=== PATIENT | male | born 1965 | race Caucasian/White ===

== ENCOUNTER 2023-07-05 11:59 | Emergency (ER) | payer OTHER, SELFPAY ==
--- NOTE | ~2023-07-05 | XR_ITS ---
EXAMINATION: XR WRIST, LEFT CLINICAL INFORMATION: Post reduction COMPARISON: Left hand and forearm radiograph from TECHNIQUE: PA, lateral, and oblique views of the left wrist. FINDINGS: Overlying cast obscures fine osseous and soft tissue detail. Redemonstration of distal radius fracture with persistent apex volar angulation and impaction. Ulnar styloid fracture is redemonstrated. Joint spaces and alignment are otherwise maintained. Soft tissue swelling along the fracture site. XR/XR wrist LT min 3V IMPRESSION: 1. Overlying cast obscures fine osseous and soft tissue detail. 2. Redemonstration of distal radius fracture with persistent apex volar angulation and impaction. 3. Ulnar styloid fracture is redemonstrated. 4. Soft tissue swelling along the fracture site.
--- NOTE | ~2023-07-05 | XR_ITS ---
EXAMINATION: XR LEFT FOREARM AND LEFT HAND AND WRIST. CLINICAL INFORMATION: Fall tender to touch left distal radius. COMPARISON: None available. TECHNIQUE: AP and lateral views of the left forearm were obtained. 4 views left wrist hand. FINDINGS: Left wrist/hand: There is a impacted fracture distal radius and a minimally displaced ulnar styloid process fracture with dinner fork deformity and dorsal soft tissue swelling. No additional fracture seen. Left forearm: Again visualized is distal radial and ulnar side process fracture. There is no fracture involving the proximal mid forearm. Mild dorsal wrist soft tissue swelling is seen. XR/XR hand wrist LT IMPRESSION: Colles fracture distal radius with mild dorsal angulation distal fragment and moderate dorsal wrist soft tissue swelling. Also visualized are minimally displaced ulnar styloid process fracture. Rest of the left forearm is unremarkable.
--- NOTE | ~2023-07-05 | XR_ITS ---
EXAMINATION: XR LEFT FOREARM AND LEFT HAND AND WRIST. CLINICAL INFORMATION: Fall tender to touch left distal radius. COMPARISON: None available. TECHNIQUE: AP and lateral views of the left forearm were obtained. 4 views left wrist hand. FINDINGS: Left wrist/hand: There is a impacted fracture distal radius and a minimally displaced ulnar styloid process fracture with dinner fork deformity and dorsal soft tissue swelling. No additional fracture seen. Left forearm: Again visualized is distal radial and ulnar side process fracture. There is no fracture involving the proximal mid forearm. Mild dorsal wrist soft tissue swelling is seen. XR/XR forearm LT 2V IMPRESSION: Colles fracture distal radius with mild dorsal angulation distal fragment and moderate dorsal wrist soft tissue swelling. Also visualized are minimally displaced ulnar styloid process fracture. Rest of the left forearm is unremarkable.
[2023-07-05 12:21] VITALS: BP 150/75; PULSE 86; RESP 18; TEMP 36.3; O2SAT 96; BMI 21.0
--- NOTE | 2023-07-05 12:21 | ED.EXTPRO ---
HPI - Extremity Problem General Chief complaint: Extremity Injury, Upper Stated complaint: L wrist injury Time Seen by Provider: 07/05/23 13:44 Source: patient Mode of arrival: ambulatory Limitations: no limitations History of Present Illness HPI Narrative: Patient is a 57 year old assigned male at with a history of tobacco use presenting to the emergency department today with left wrist pain. Patient states that 3 days ago he tripped and fell, landing on an outstretched left wrist. Patient denies any head strike or loss of consciousness. Patient denies any dizziness, lightheadedness, abdominal pain, nausea, vomiting, fever, chills, blurry vision, double vision, loss of vision, chest pain, difficulty breathing, shortness of breath, back pain, night sweats, pain with urination, increased urinary frequency, increased urinary urgency, blood in his urine or stool, syncope or a near syncopal episode, bowel incontinence, bladder incontinence, bowel retention, bladder retention, or any other complaints at this time. MD Complaint: extremity pain Onset (ago): day(s) (3) Pain Consistency: constant Location: left and upper extremity Severity scale (1-10): 4 Quality: aching and dull Radiation: none Relieving factors: nothing Exacerbating factors: range of motion and palpation Associated symptoms: denies other symptoms Related Data Allergies Allergy/AdvReac Type Severity Reaction Status Date / Time No Known Allergies Allergy Verified 07/05/23 12:21 Review of Systems Constitutional: Constitutional: Reports no additional constitutional complaints, Denies chills, Denies fever(s) and Denies night sweats Eyes: Eyes: Reports no additional eye complaints, Denies blurry vision, Denies change in vision, Denies diplopia, Denies eye discharge, Denies loss of vision and Denies eye pain ENT: Denies dizziness Cardiovascular: Cardiovascular: Reports no additional cardiovascular complaints, Denies chest pain, Denies lightheadedness, Denies Loss of Consciousness and Denies dyspnea Respiratory: Respiratory: Reports no additional respiratory complaints and Denies dyspnea Gastrointestinal: Gastrointestinal: Reports no additional gastrointestinal complaints, Denies abdominal pain, Denies melena, Denies hematochezia, Denies change in bowel habits and Denies change in stool character Genitourinary: Genitourinary: Reports no additional male genitourinary complaints, Denies hematuria, Denies oliguria, Denies difficulty urinating, Denies dysuria, Denies urinary frequency, Denies urinary hesitancy, Denies urinary incontinence and Denies urinary urgency Musculoskeletal: Musculoskeletal: Reports no additional musculoskeletal complaints, Denies numbness and Denies tingling Comments: left wrist pain Neurologic: Denies dizziness, Denies loss of vision, Denies numbness and Denies tingling Psychiatric: Psychiatric: Reports no additional psychiatric complaints Endocrine: Endocrine: Reports no additional endocrine complaints Hematologic/Lymphatic: Hematologic/Lymphatic: Reports no additional hematologic/lymphatic complaints Allergic/Immunologic: Allergic/Immunologic: Reports no additional allergic/immunologic complaints PMFSH Past Medical History Attestation statement: The following information was validated with the patient. Source: old records reviewed and nursing notes reviewed Onset Date is defined in the Problem List Problems that require an onset date and time if occurred within 24 hrs of arrival to the ED Aortic Dissection and Rupture; Neurologic impairment; Cardiopulmonary Arrest; Endotracheal Intubation; Insertion or Replacement of Mechanical Circulatory Assist Device Social History Social History Advance Directives: No Advance Directives Information Provided: No Physical Exam Vital Signs: Vital Signs: Last Vital Signs Temp 97.3 F 07/05/23 12:21 Pulse 86 07/05/23 12:21 Resp 18 07/05/23 12:21 BP 150/75 H 07/05/23 12:21 Pulse Ox 96 07/05/23 12:21 O2 Del Method Room Air 07/05/23 12:21 BMI result Body Mass Index 21.0 Const: General: cooperative, no acute distress, alert and awake Nutritional Appearance: well nourished Orientation/consciousness: patient oriented x3 Limitations: no limitations HEENT: Head: Yes normal to inspection and Yes atraumatic Ears: hearing grossly normal bilaterally and external ears normal General nose exam: Normal external nose present, no nasal discharge noted and no epistaxis Face and sinus: Yes normal facial exam, No abrasion and No laceration Mouth: Normal oral and palatal mucosa present, no drooling and no muffled voice Eyes: General: appearance normal, both eyes and all related structures Periorbital: periorbital findings normal Eyelids: Yes eyelids normal Conjunctivae: conjunctivae normal Pupils: Equal, round and reactive pupils present EOM: EOMs intact bilaterally Neck: Neck: Yes normal visual inspection, Yes full ROM and Yes no lymphadenopathy Chest: Chest palpation & inspection: normal inspection of the chest Resp: Effort & Inspection: normal respiratory effort and able to speak in complete sentences GI: Inspection: Yes normal to inspection Neuro: General: patient oriented x3 and moves all extremities Cranial nerves: Yes Equal, round and reactive pupils present Cognition (Neuro): normal cognition Motor exam (neuro): 5/5 motor strength present throughout Sensory Exam: Normal double simultaneous stimulation for sensation Coordination: [id number]-[id number] test normal Extrem: Other: minimal left wrist swelling, pain with palpation of the left wrist, pain with ROM of the left wrist General: Yes capillary refill normal Psych: Appearance: grossly normal Mental Status: mental status grossly normal Affect: normal affect Attitude: cooperative Thought process: Normal thought process present Thought content: Normal thought content present Insight: Good insight present (Psych) Course Course Course Narrative: RME:?57 yo male here w/ left wrist pain x2 days. States he was walking backward with his hand behind his back when his fingers became caught in a chain linked fence. reports falling and pulling his left hand out of the fence. +immediate left wrist pain. now radiating up his left forearm. no otc meds at home. +ttp over left distall radius. 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 2+radial pulses paln for xr Full HPI, ROS and PE to be performed by the primary ED provider. Medications Administered Discontinued Medications Generic Name Dose Route Start Last Admin Trade Name Freq PRN Reason Stop Dose Admin Bupivacaine HCl 5 ml 07/05/23 13:46 07/05/23 14:20 Bupivacaine 0.5 % 50 Ml Vial INFILTRATI 07/05/23 13:47 5 ml ONCE ONE Administration Lidocaine HCl 5 ml 07/05/23 13:46 07/05/23 14:20 Lidocaine Hcl 1 % Mpf 5 Ml Vial SUBCUT 07/05/23 13:47 5 ml ONCE ONE Administration Medical Decision Making Medical Decision Making MDM Narrative: Patient is a 57 year old assigned male at with a history of tobacco use presenting to the emergency department today with left wrist pain. Patient's physical exam was as noted in the physical exam portion of this note. Patient's left wrist x-ray showed a colles fracture distal radius with an ulnar styloid fracture. I explained my physical exam findings as well as all test results to the patient. I answered all questions asked by the patient. I performed a hematoma block of the left wrist and reduced the left wrist slightly. Patient's repeat left wrist x-ray showed improved alignment. Patient's PMS was intact prior to and after reduction. Patient's left wrist was placed in a sugar tong splint, without incident. Patient's PMS was intact prior to and after splint placement. I stressed the importance of the patient taking his medication as prescribed. I stressed the importance of the patient following up with his primary care provider and an orthopedic provider. I stressed the importance of the patient returning to the emergency department immediately if his symptoms were to worsen or if he were to develop any dizziness, shortness of breath, difficulty breathing, chest pain, blurry vision, loss of vision, nausea, vomiting, abdominal pain, fever, chills, back pain, or any other complaints. Patient verbalized agreement and understanding with this treatment plan and discharge. Differential Diagnosis Differential Diagnoses: The differential diagnosis associated with the presentation includes Wrist fracture Ulnar fracture Radius fracture Admission/Observation Consideration of admission/observation: Escalation of care including admission/observation considered Patient would have been admitted to the hospital had his work up had any findings where hospital admission was appropriate and his clinical presentation warranted hospital admission. Independent Interpretation I performed an independent interpretation of an: Plain X-Ray Interpretation: My interpretation is in agreement with the radiologist's impression of these imaging studies. EXAMINATION: XR LEFT FOREARM AND LEFT HAND AND WRIST. CLINICAL INFORMATION: Fall tender to touch left distal radius. COMPARISON: None available. TECHNIQUE: AP and lateral views of the left forearm were obtained. 4 views left wrist hand. FINDINGS: Left wrist/hand: There is a impacted fracture distal radius and a minimally displaced ulnar styloid process fracture with dinner fork deformity and dorsal soft tissue swelling. No additional fracture seen. Left forearm: Again visualized is distal radial and ulnar side process fracture. There is no fracture involving the proximal mid forearm. Mild dorsal wrist soft tissue swelling is seen. XR/XR hand wrist LT IMPRESSION: Colles fracture distal radius with mild dorsal angulation distal fragment and moderate dorsal wrist soft tissue swelling. Also visualized are minimally displaced ulnar styloid process fracture. Rest of the left forearm is unremarkable. Dictated By: Jose Francisco Lopez MD Signed By: Electronically signed by Jose Francicso Lopez MD 07/05/23 1416 EXAMINATION: XR WRIST, LEFT CLINICAL INFORMATION: Post reduction COMPARISON: Left hand and forearm radiograph from TECHNIQUE: PA, lateral, and oblique views of the left wrist. FINDINGS: Overlying cast obscures fine osseous and soft tissue detail. Redemonstration of distal radius fracture with persistent apex volar angulation and impaction. Ulnar styloid fracture is redemonstrated. Joint spaces and alignment are otherwise maintained. Soft tissue swelling along the fracture site. XR/XR wrist LT min 3V IMPRESSION: 1. Overlying cast obscures fine osseous and soft tissue detail. 2. Redemonstration of distal radius fracture with persistent apex volar angulation and impaction. 3. Ulnar styloid fracture is redemonstrated. 4. Soft tissue swelling along the fracture site. Dictated By: Jovany Dobbins MD Signed By: Electronically signed by Jovany Dobbins MD 07/05/23 1518 Radiology Impression Discussion of test interpretation with radiology: I have reviewed the radiologist's reading. Procedures Orthopedic Fracture Reduction Fracture #1: Time Out Performed: Yes Side: left Fracture Reduction Location: radius and ulna Analgesia: hematoma block Technique: direct manipulation and traction/counter-traction Post Reduction X-rays Demonstrate: anatomical reduction Post-reduction neuro exam: intact Post-reduction vascular exam: intact Splint Applied: Yes Patient Tolerated Procedure: well Orthopedic Splinting/Casting Injury #1: Side: left Upper Extremity Injury Location: wrist Upper Extremity Immobilizer: sling/shoulder immobilizer and sugar tong splint Critical Care Time Critical Care Time Critical Care Time: Yes Total Critical Care Time: 45 Attestation: I spent 45 minutes of Critical Care Time with this patient. This does not include time spent on separately reported billable procedures. Discharge Plan Discharge Clinical Impression: Fx wrist Patient Disposition: Home, Self-Care Instructions: Wrist Fracture in Adults (ED) Additional Instructions: Do NOT get your splint wet. If you have any numbness and tingling in your fingers, you may loosen the OANH Wrap around your splint. If you find yourself loosening so much you're taking it off, come back to the ER for a new splint. Follow up with your primary care provider and an orthopedic provider. Return to the emergency department immediately if your symptoms worsen or if you develop any dizziness, shortness of breath, difficulty breathing, chest pain, blurry vision, loss of vision, nausea, vomiting, abdominal pain, fever, chills, back pain, or any other complaints. [place] [facility] [place]] (Call to establish and follow up with a primary care provider. If you already have a primary care provider, please follow up with them.) [facility] [place] [facility] [place] (Call to establish and follow up with a primary care provider. If you already have a primary care provider, please follow up with them.) [facility] [place] [place]Provider Group] (Call to establish and follow up with a primary care provider. If you already have a primary care provider, please follow up with them.) [facility] [place] [facility] [place]] (Call to establish and follow up with an orthopedic provider.) Interventions: ED Discharge Assessment Last Done: 07/05/23 15:12 Discharge Date/Time: 07/05/23 15:13 Print Language: Danish
[2023-07-05] MEDS: Lidocaine HCl 1 % MPF 5 ML VIAL SUBCUT (14:20)
== END 2023-07-05 15:13 | disposition home or self-care (01) ==
PROVIDERS: Emergency Provider Emergency Medicine
DX: S62.102A Fracture of unspecified carpal bone, left wrist, initial encounter for closed fracture (principal); M25.532 Pain in left wrist; W01.0XXA Fall on same level from slipping, tripping and stumbling without subsequent striking against object, initial encounter; Y93.9 Activity, unspecified; Y92.89 Other specified places as the place of occurrence of the external cause; Y99.9 Unspecified external cause status
CPT/HCPCS: 25650; 29125; 73090; 73110; 73130; 99282; 99284; J0665

== ENCOUNTER 2023-07-14 13:39 | Outpatient (REF) | payer OTHER, SELFPAY | END 2023-07-14 13:40 | disposition home or self-care (01) | LOC: HO.HOSX 13:39 | PROVIDERS: Visit Provider Physician Assistant | DX: Z13.89 Encounter for screening for other disorder (principal) ==

== ENCOUNTER 2023-07-26 09:06 | Outpatient (REF) | payer OTHER, SELFPAY ==
--- NOTE | ~2023-07-26 | XR_ITS ---
EXAMINATION: XR WRIST, LEFT CLINICAL INFORMATION: Left wrist pain COMPARISON: Left wrist x-ray on 07/05/2023 TECHNIQUE: PA, lateral, and oblique views of the left wrist. FINDINGS: BONES: Mildly impacted fracture distal left radial metaphysis with moderate dorsal displacement and angulation is again visualized. Sclerotic bone formation is seen at the fracture site. Transverse nondisplaced fracture tip of left ulna styloid process is also seen. JOINTS: Alignment of joints is normal. SOFT TISSUE: Soft tissue is normal. No radiopaque foreign body or abnormal air collection is seen. XR/XR wrist LT min 3V IMPRESSION: 1. Unchanged impacted fracture distal left radial metaphysis with moderate dorsal displacement and angulation. Interval appearance of sclerotic bone formation at the fracture site without union. 2. Unchanged Transverse nondisplaced fracture tip of left ulna styloid process. 3. Interval removal of Scotch cast.
== END 2023-07-26 09:07 | disposition home or self-care (01) ==
LOC: HO.HOSX 09:06
PROVIDERS: Visit Provider Physician Assistant
DX: S52.502A Unspecified fracture of the lower end of left radius, initial encounter for closed fracture (principal); W01.0XXA Fall on same level from slipping, tripping and stumbling without subsequent striking against object, initial encounter; Y93.9 Activity, unspecified; Y92.9 Unspecified place or not applicable; Y99.9 Unspecified external cause status; Z79.899 Other long term (current) drug therapy
CPT/HCPCS: 25600; 73110; 99202

== ENCOUNTER 2023-07-26 11:03 | Outpatient (AMB) | payer OTHER, SELFPAY ==
--- NOTE | 2023-07-26 11:09 | A.OFFVIS_ITS ---
Intake Vital Signs 07/26/23 11:27 Height 6 ft Weight 155 lb BMI 21.0 Intake Visit Reasons: FC-distal radius fx, left Intake Note: Hayden Frank a 57 year old male presents today for an evaluation of left distal radius fx. Patient reports a few days prior to [facility] [place] ER visit he had a trip and fall, landing on an outstretched arm. Xrays were taken at ED and was placed in a splint. Currently his pain has been tolerable and is located at the radial aspect of wrist. He has discomfort with removing splint today for xrays. Denies numbness and tingling. Allergies No Known Allergies Allergy (Verified 07/26/23 11:23) Medication List - Last Reconciled 07/26/23 by Marc Hudson PA-C atorvastatin 40 mg PO DAILY metoprolol tartrate 25 mg PO BID HPI FC-distal radius fx, left HPI Details 57-year-old right hand dominant male who presents to the office today for evaluation of left wrist injury the first week of Jun 2023, landing on an outstretched arm. He states his hand got stuck in a fence and he kept moving but the arm was entagled in the fence. He was seen at ED a few days later where x- rays were performed and he was placed in a splint. He currently states he has pain at the radial aspect of his wrist which has been tolerable. He denies any numbness or tingling. He also c/o discomfort with removing of splint today for x-rays. 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 Mild tenderness over the distal radius. No pain along the forearm or elbow. He has full ROM of the elbow. He can supinate and pronate without discomfort. NVI. Office Procedures Casting/Splints 90024-Kgby/Wrist Cast Application Procedure code (CPT) selection complete Fracture Care Fracture Billing Code: Fracture Billing Code Results Reviewed Results Reviewed: X-rays of the left wrist obtained in the office today is significant for a distal radius fracture with impaction and dorsal angulation with evidence of interval healing. Assessment & Plan Assessment & Plan (1) Distal radius fracture, left: Code(s): S52.502A - Unspecified fracture of the lower end of left radius, initial encounter for closed fracture Plan The patient was placed in a short arm cast for the next 3 weeks. Given that the fracture is 4 weeks out and this is his non dominant hand, we discussed non- surgical treatments such as immobilization for 3 weeks, followed by a Velcro wrist splint. He is a smoker and I did explain him the effects of smoking on bone healing for which he does express understanding. I also explained if he decides to have his fracture operated, it would include osteotomy followed by an ORIF which he is not interested in. I would like to see him back in 3 weeks with cast off and new x-rays, sooner if needed. Orders: Orders XR wrist LT min 3V Today M25.532 - Pain in left wrist Patient Instructions: Scribed for Marc Hudson PA-C, by [facility] medical office asst, on 07/26/2023 at 11:15 AM EST. IMarc PA-C, have personally reviewed and agree with the information entered by the scribe. Coding Level of Care Code New Pt Level 3 (62147) Diagnoses Distal radius fracture, left S52.502A CPT Codes Casting - CPT: 54525-Hmow/Wrist Cast Application ([id number]) Fracture Care - Fracture Billing Code: Fracture Billing Code ([id number])
[2023-07-26 11:27] VITALS: BMI 21.0
== END 2023-07-26 12:09 | disposition home or self-care (01) ==
PROVIDERS: Visit Provider Physician Assistant
DX: S52.502A Unspecified fracture of the lower end of left radius, initial encounter for closed fracture (principal); W01.0XXA Fall on same level from slipping, tripping and stumbling without subsequent striking against object, initial encounter
CPT/HCPCS: 25600; 99203

== ENCOUNTER 2023-08-19 11:45 | Outpatient (REF) | payer OTHER, SELFPAY | END 2023-08-19 11:46 | disposition home or self-care (01) | LOC: HO.HOSX 11:45 | PROVIDERS: Visit Provider Physician Assistant | DX: Z13.89 Encounter for screening for other disorder (principal) ==

== ENCOUNTER 2023-09-02 09:17 | Outpatient (REF) | payer OTHER, SELFPAY ==
--- NOTE | ~2023-09-02 | XR_ITS ---
EXAMINATION: XR WRIST, LEFT CLINICAL INFORMATION: Pain in left wrist, fracture. COMPARISON: 07/27/2023 left wrist radiograph and prior. TECHNIQUE: PA, lateral, and oblique views of the left wrist. FINDINGS: Redemonstration of mildly impacted distal left radial metaphyseal fracture. Redemonstration of moderate dorsal displacement and angulation. Bony sclerosis along the fracture line has increased, although fracture line is still visible. Redemonstration of mildly displaced transverse fracture of the tip of the ulnar styloid process. Moderate degenerative changes in the first carpometacarpal joint with joint space narrowing and hypertrophic change. XR/XR wrist LT min 3V IMPRESSION: 1. Redemonstration of mildly impacted distal left radial metaphyseal fracture. Redemonstration of moderate dorsal displacement and angulation. Bony sclerosis along the fracture line has increased, although fractures line is still visible. 2. Redemonstration of mildly displaced transverse fracture of the tip of the ulnar styloid process.
== END 2023-09-02 09:18 | disposition home or self-care (01) ==
LOC: HO.HOSX 09:17
PROVIDERS: Visit Provider Physician Assistant
DX: S52.502D Unspecified fracture of the lower end of left radius, subsequent encounter for closed fracture with routine healing (principal)
CPT/HCPCS: 73110; 99212

== ENCOUNTER 2023-09-02 13:15 | Outpatient (AMB) | payer OTHER, SELFPAY ==
--- NOTE | 2023-09-02 13:40 | A.OFFVIS_ITS ---
Intake Vital Signs 09/02/23 14:40 Height 6 ft Weight 155 lb BMI 21.0 Intake Visit Reasons: OV-left wrist FX-Velcro wrist splint Intake Note: Hayden Frank a 57 year old right hand dominant male presents today for a follow up of left distal radius fx. Cast off and xrays updated. Patient reports he is doing well, states some discomfort in his wrist area that he believes is caused by cast wear. Allergies No Known Allergies Allergy (Verified 09/02/23 14:40) HPI OV-left wrist FX-Velcro wrist splint HPI Details 57-year-old male who returns to the [facility] today for a follow-up of left wrist fracture. He states he has no pain and is doing well overall. He has no concerns today. 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 Mild tenderness over the distal radius. No pain along the forearm or elbow. He has full ROM of the elbow. He can supinate and pronate without discomfort. NVI. Results Reviewed Results Reviewed: X-rays of the left wrist obtained in the office today is significant for a distal radius fracture with impaction and dorsal angulation with evidence of interval healing. Assessment & Plan Assessment & Plan (1) Distal radius fracture, left: Code(s): S52.502A - Unspecified fracture of the lower end of left radius, initial encounter for closed fracture Qualifiers: Encounter type: subsequent encounter Fracture type: closed Fracture morphology: unspecified fracture morphology Fracture healing: with routine healing Qualified Code(s): S52.502D - Unspecified fracture of the lower end of left radius, subsequent encounter for closed fracture with routine healing Plan He was transitioned to a Velcro wrist splint which he will wear with any type of activities. He can remove the splint for hygiene, resting and wrist exercises at home. I did explain the fracture is still healing and may have weak areas that may be prone to re-fracture. I also explained the impact smoking has on bone healing. I would like to see him back in 4-6 weeks with x-rays, sooner if needed. Orders: Orders XR wrist LT min 3V 08/19/23 M25.532 - Pain in left wrist XR wrist LT min 3V 09/02/23 M25.532 - Pain in left wrist Patient Instructions: Scribed for Marc Hudson PA-C, by Carson [facility]air medical management specialist, on 09/02/2023 at 1:15 PM EST. I, Marc Hudson PA-C, have personally reviewed and agree with the information entered by the scribe. Coding Level of Care Code Global (01783) Diagnoses Closed fracture of distal end of left radius with routine healing, unspecified fracture morphology, subsequent encounter S52.502D Encounter type: subsequent encounter Fracture type: closed Fracture morphology: unspecified fracture morphology Fracture healing: with routine healing
[2023-09-02 14:40] VITALS: BMI 21.0
== END 2023-09-02 14:04 | disposition home or self-care (01) ==
PROVIDERS: Visit Provider Physician Assistant
DX: S52.502D Unspecified fracture of the lower end of left radius, subsequent encounter for closed fracture with routine healing (principal)
CPT/HCPCS: 99024